=== PATIENT | male | born 1985 | race Two or more races ===

== ENCOUNTER 2018-09-09 14:58 | Emergency (ER) | payer MEDICARE, MEDICAID ==
[~2018-09-09] VITALS: Ht 149.9 cm; Wt 65.8 kg
[2018-09-09 15:14] VITALS: BP 158/86
== END 2018-09-09 17:06 | disposition home or self-care (01) ==
LOC: ER 15:14
DX: H66.91 Otitis media, unspecified, right ear (principal); Z88.6 Allergy status to analgesic agent